=== PATIENT | male | born 1990 | race Caucasian/White ===

== ENCOUNTER 2018-01-09 00:02 | Emergency (ER) | payer SELFPAY ==
[2018-01-09] MEDS: KETOROLAC 30 MG INJ IM (00:42)
[2018-01-09] MEDS ORDERED: PROPOFOL 100 ML IV (01:30)
[2018-01-09] MEDS ORDERED: FENTAnyl 50 MCG/ML VIAL IV (01:30)
[2018-01-09] MEDS: SOD CHLORIDE 0.9% 1,000 ML IV (01:42)
[2018-01-09 02:04] LABS: ADD MAN DIFF? NO
[2018-01-09 02:07] LABS: WHITE BLOOD COUNT 7.7 10^3/ul (4.8-10.8)
[2018-01-09 02:07] LABS: BASOPHIL # 0.1 10^3/ul (0.0-0.1); BASOPHILS % 0.8 % (0.0-2.0); EOSINOPHILS # 0.3 10^3/ul (0.0-0.5); EOSINOPHILS % 3.5 % (0.0-7.0); HEMATOCRIT 39.9 % (42.0-52.0); HEMOGLOBIN 13.9 g/dl (14.0-18.0); LYMPHOCYTES # 3.2 10^3/ul (0.8-2.9); LYMPHOCYTES % 41.3 % (15.0-51.0); MEAN CORPUSCULAR HEMOGLOBIN 29.8 pg (29.0-33.0); MEAN CORPUSCULAR HGB CONC 34.8 g/dl (32.0-37.0); MEAN CORPUSCULAR VOLUME 85.4 fl (82.0-101.0); MEAN PLATELET VOLUME 9.9 fl (7.4-10.4); MONOCYTE # 0.8 10^3/ul (0.3-0.9); NEUTROPHIL # 3.4 10^3/ul (1.6-7.5); NEUTROPHILS % 44.3 % (39.0-77.0); PLATELET COUNT 252 10^3/UL (140-415); RED BLOOD COUNT 4.67 10^6/ul (4.70-6.10); RED CELL DISTRIBUTION WIDTH 12.5 % (11.5-14.5)
[2018-01-09 02:26] LABS: PROTIME 14.4 Sec (11.9-14.9); PT RATIO 1.1
[2018-01-09 02:30] LABS: ANION GAP 14 (8-16); BLOOD UREA NITROGEN 15 mg/dl (7-20); CALCIUM 9.5 mg/dl (8.4-10.2); CARBON DIOXIDE 30 mmol/L (21-31); CHLORIDE 105 mmol/L (97-110); CREATININE 0.85 mg/dl (0.61-1.24); GLUCOSE 86 mg/dl (70-220); SODIUM 145 mmol/L (135-144)
== END 2018-01-09 02:37 | disposition home or self-care (01) ==
LOC: E/R 00:02
DX: S93.304A Unspecified dislocation of right foot, initial encounter (principal); R07.9 Chest pain, unspecified; X58.XXXA Exposure to other specified factors, initial encounter; Y92.009 Unspecified place in unspecified non-institutional (private) residence as the place of occurrence of the external cause
CPT/HCPCS: 28570; 36415; 73610-RT; 80048; 85025; 85610; 94770; 96360; 96372; 99284-25